=== PATIENT | female | born 1930 | race African-American/Black ===

== ENCOUNTER → 2016-11-16 | Outpatient (CLI) | payer MEDICARE, OTHER ==
--- NOTE | ~2016-11-16 | US37 ---
[facility] A Service of [facility] RADIOLOGY TEXT RESULTS PATIENT: MALGORZATA ANGELO LOCATION: CNIV : 30 UNIT #: [id number] AGE: [address]: Kesha Denise MD SEX: F ORDER DR: [id number] [facility] [address] [place], [place] [address] [id number] O MR#: [id number] Acc #: [id number] NAME: MALGORZATA ANGELO : 1930 SEX: F STUDY DATE/TIME: 11/16/2016 13:08 UNIT: CNIV ROOM: STUDY DESCRIPTION: US Carotid W/Doppler Bilateral Attending Physician: Kesha Denise Referring Physician: Kesha Denise Ordering Physician: Esther Denise M.D. Primary Care Physician: Arnol Momin MEDICAL IMAGING REPORT This report is preliminary unless electronic signature is present EXAM Bilateral carotid Doppler HISTORY Carotid stenosis FINDINGS The right common carotid, internal carotid and external carotid arteries are patent with plaque in the carotid bulb extending to the proximal internal carotid artery. Velocity in the common carotid artery is 48 cm/sec. Peak systolic velocity of the right proximal internal carotid artery is 42 cm/sec with an end diastolic velocity of 8 cm/sec for an ICA/CCA ratio of 0.88. External carotid artery had a velocity of 80 cm/sec. The vertebral artery is visualized with antegrade flow. The left common carotid, internal carotid and external carotid arteries are patent with minimal plaque at the carotid bulb extending to the proximal internal carotid artery. Velocity in the common carotid artery is 48 cm/sec. Peak systolic velocity of the left proximal internal carotid artery is 43 cm/sec with an end diastolic velocity of 14 cm/sec for an ICA/CCA ratio of 0.9. External carotid artery had a velocity of 37 cm/sec. The vertebral artery is visualized with antegrade flow. IMPRESSION 1. Less than 50% stenosis of the right and left internal carotid arteries. 2. No stenosis of the external carotid arteries. 3. Antegrade flow of the vertebral arteries. Dictated by... [facility] A Service of [facility] RADIOLOGY TEXT RESULTS PATIENT: MALGORZATA ANGELO LOCATION: [facility] : 30 UNIT #: [id number] AGE: [address]: Kesha Denise MD SEX: F ORDER DR: David Dockery M.D. THIS IS AN ELECTRONICALLY VERIFIED REPORT David Dockery M.D. at 11/21/2016 7:59 AM UNIQUE/ivy TD: 11/17/2016 17:05 JOB #: [id number] MEDICAL IMAGING REPORT Page 1 of 1 COPY
== END | disposition home or self-care (01) ==
LOC: CNIV 12:30 → CECH 13:00
DX: I65.23 Occlusion and stenosis of bilateral carotid arteries (principal); R01.1 Cardiac murmur, unspecified; I34.0 Nonrheumatic mitral (valve) insufficiency; I36.1 Nonrheumatic tricuspid (valve) insufficiency; I37.1 Nonrheumatic pulmonary valve insufficiency
CPT/HCPCS: 93306; 93880